=== PATIENT | male | born 1970 | race Caucasian/White ===

== ENCOUNTER 2016-05-02 19:11 | Emergency (ER) | payer BC ==
[~2016-05-02] VITALS: Ht 175.3 cm; Wt 84.0 kg
[2016-05-02 19:14] VITALS: TEMP 37; Ht 175.3 cm; Wt 84.0 kg
--- NOTE | 2016-05-02 19:46 | EMERGENCY ROOM VISIT NOTE ---
History First contact with patient: 19:26 Chief Complaint: CHEST PAIN Stated Complaint: CHEST PAIN,INTERMITENT AND LOWER RIGHT ARM PAIN History of Present Illness The patient is a 45 year old male who presents to the Emergency Room with complaints of chest and arm pain. He reports he noticed yesterday a dull ache in his mid-right forearm, which went away on its own. He reports today at 5: 45PM he was driving and noticed pain over his left anterior chest, which was described as a pinching pain, and then went away on its own after 5 minutes then returned. He then came for further evaluation as he was scared. He has never smoked, has never had a previous heart attack, and has no family history of early cardiac disease. Review of Systems See HPI for pertinent positives & negatives. A total of 10 systems reviewed and were otherwise negative. Past Medical/Surgical History Medical Problems: (1) No pertinent past medical history Shingles Family History Mother has diabetes, father has HTN Social History Smoking Status: Never Smoker Allergies Coded Allergies: No Known Allergies (Unverified , 05/02/16) Physical Exam Vital Signs Date Time Temp Pulse Resp B/P Pulse Ox O2 Delivery O2 Flow Rate FiO2 05/02/16 22:23 64 18 101/68 98 05/02/16 21:12 61 18 107/69 97 Room Air 05/02/16 20:04 98 Room Air 05/02/16 20:00 98 Room Air 05/02/16 19:14 37.0 80 18 126/83 99 Room Air Physical Exam GENERAL: Awake, alert, well-appearing, in no acute distress HENT: Normocephalic, atraumatic. Oropharynx unremarkable. EYES: Normal conjunctiva. Sclera non-icteric. NECK: Supple. No nuchal rigidity. FROM. No JVD. RESPIRATORY: Clear to auscultation. CARDIAC: Regular rate, normal rhythm. Extremities warm and well perfused. Pulses equal. ABDOMEN: Soft, non-distended. No tenderness to palpation. No rebound or guarding. No masses. MUSCULOSKELETAL: Chest examination reveals tenderness to palpation of left anterior chest, from clavicle to diaphragm. The back is symmetrical on inspection without obvious abnormality. There is no CVA tenderness to palpation. No joint edema. LOWER EXTREMITIES: Calves are equal size bilaterally and non-tender. No edema. No discoloration. NEURO: Normal sensorium. No sensory or motor deficits noted. SKIN: No rash or jaundice noted. Medical Decision & Procedures ER Provider Diagnostic Interpretation: CHEST 2 VIEWS ROUTINE CLINICAL HISTORY: chest pain dyspnea COMPARISON STUDY: No previous studies for comparison. FINDINGS: The bones soft tissues and hemidiaphragms are normal. The cardiomediastinal silhouette is normal. The lungs are clear. The pulmonary vasculature is normal. IMPRESSION: Negative chest. Laboratory Results 05/02/16 19:55 Red Blood Count 4.91, Mean Corpuscular Volume 84.5, Mean Corpuscular Hemoglobin 30.5, Mean Corpuscular Hemoglobin Concent 36.1, Mean Platelet Volume 9.5, Neutrophils (%) (Auto) 54.0, Lymphocytes (%) (Auto) 35.4, Monocytes (%) (Auto) 8.4, Eosinophils (%) (Auto) 1.7, Basophils (%) (Auto) 0.3, Neutrophils # (Auto) 3.15, Lymphocytes # (Auto) 2.07, Monocytes # (Auto) 0.49, Eosinophils # (Auto) 0.10, Basophils # (Auto) 0.02 05/02/16 19:55 Test 05/02/16 19:55 05/02/16 20:01 05/02/16 21:44 White Blood Count 5.84 K/uL (4.8-10.8) Red Blood Count 4.91 M/uL (4.7-6.1) Hemoglobin 15.0 g/dL (14.0-18.0) Hematocrit 41.5 % (42-52) Mean Corpuscular Volume 84.5 fL (80-100) Mean Corpuscular Hemoglobin 30.5 pg (25-34) Mean Corpuscular Hemoglobin Concent 36.1 g/dl (32-36) Platelet Count 256 K/uL (130-400) Mean Platelet Volume 9.5 fL (7.4-10.4) Neutrophils (%) (Auto) 54.0 % Lymphocytes (%) (Auto) 35.4 % Monocytes (%) (Auto) 8.4 % Eosinophils (%) (Auto) 1.7 % Basophils (%) (Auto) 0.3 % Neutrophils # (Auto) 3.15 K/uL (1.4-6.5) Lymphocytes # (Auto) 2.07 K/uL (1.2-3.4) Monocytes # (Auto) 0.49 K/uL (0.11-0.59) Eosinophils # (Auto) 0.10 K/uL (0-0.5) Basophils # (Auto) 0.02 K/uL (0-0.2) RDW Standard Deviation 37.7 fL (36.4-46.3) RDW Coefficient of Variation 12.3 % (11.5-14.5) Immature Granulocyte % (Auto) 0.2 % Immature Granulocyte # (Auto) 0.01 K/uL (0.00-0.02) Anion Gap 7.0 mmol/L (3-11) Est Creatinine Clear Calc Drug Dose 85.7 ml/min Estimated GFR () 94.1 Estimated GFR (Non- 81.2 BUN/Creatinine Ratio 16.3 (10-20) Calcium Level 8.8 mg/dl (8.5-10.1) Total Bilirubin 0.3 mg/dl (0.2-1) Aspartate Amino Transf (AST/SGOT) 21 U/L (15-37) Alanine Aminotransferase (ALT/SGPT) 21 U/L (12-78) Alkaline Phosphatase 43 U/L (45-117) Total Protein 7.2 gm/dl (6.4-8.2) Albumin 4.1 gm/dl (3.4-5.0) Globulin 3.1 gm/dl (2.5-4.0) Albumin/Globulin Ratio 1.3 (0.9-2) Bedside D-Dimer 238 ng/mlFEU (0-450) Bedside Troponin I 0.000 ng/ml (0-0.045) ECG Indication: chest pain Rhythm: normal sinus Comparison ECG Date: no prior available ED Course 2001: The patient was evaluated in room C1. A complete history and physical exam was performed. I ordered labwork and a CXR. I discussed the findings with my attending. 2155: I discussed the results, which were unremarkable and discharge instructions: the patient verbalized understanding and agreement. The patient is ready for discharge. Medical Decision Triage Nursing notes reviewed. 45 yo M with minimal cardiac risk factors presented with chest pain. Differential includes musculoskeletal, cardiac ischemia, shingles, aortic dissection, pulmonary embolism, pneumonia, pneumothorax, infections, gastrointestinal, as well as others were entertained. He did have reproducible tenderness on exam. He had a normal EKG and troponin negative x 2. His pain had resolved by time of re-assessment. His CXR was negative. We talked in depth about causes of chest pain, and warning signs for cardiac ischemia, and following up with a PCP to potentially get a stress test in the future. He was discharged home in good condition. Impression Primary Impression: Chest wall pain Additional Impression: Non-cardiac chest pain Departure Information Patient Instructions My [facility] Resident Tracking Resident Involvement: Resident Care Provided Care Provided: Adult ED Problem Qualifiers
[2016-05-02 20:03] LABS: BASO % 0.3 %; BASO ABS # 0.02 K/uL (0-0.2); COMPLETE YES; EOS % 1.7 %; HEMATOCRIT 41.5 % (42-52); IG% 0.2 %; LYMPH % 35.4 %; LYMPH ABS # 2.07 K/uL (1.2-3.4); MEAN CELL VOLUME 84.5 fL (80-100); MEAN CORPUSCULAR HEMOGLOBIN 30.5 pg (25-34); MEAN CORPUSCULAR HGB CONC 36.1 g/dl (32-36); MEAN PLATELET VOLUME 9.5 fL (7.4-10.4); MONO % 8.4 %; PLATELET COUNT 256 K/uL (130-400); RED BLOOD COUNT 4.91 M/uL (4.7-6.1); WHITE BLOOD COUNT 5.84 K/uL (4.8-10.8)
[2016-05-02 20:04] VITALS: O2SAT 98
[2016-05-02 20:21] LABS: BUN/CREATININE RATIO 16.3 (10-20); CALCIUM 8.8 mg/dl (8.5-10.1); CREATININE 1.1 mg/dl (0.60-1.40); POTASSIUM 3.8 mmol/L (3.5-5.1)
[2016-05-02 20:24] LABS: ALB/GLOB RATIO 1.3 (0.9-2)
--- NOTE | 2016-05-02 21:24 | DIAGNOSTIC IMAGING REPORT ---
CHEST 2 VIEWS ROUTINE CLINICAL HISTORY: chest pain dyspnea COMPARISON STUDY: No previous studies for comparison. FINDINGS: The bones soft tissues and hemidiaphragms are normal. The cardiomediastinal silhouette is normal. The lungs are clear. The pulmonary vasculature is normal. IMPRESSION: Negative chest. Electronically signed by: Heri Ochoa M.D. 05/02/2016 9:23 PM Dictated Date/Time: 05/02/2016 9:23 PM
[2016-05-02 22:23] VITALS: BP 101/68; PULSE 64; O2SAT 98
--- NOTE | 2016-05-02 23:36 | EMERGENCY ROOM VISIT NOTE ---
History Report prepared by Karolyn: Darya Hong Under the Supervision of: Dr. Chase Drew M.D. First contact with patient: 19:26 Chief Complaint: CHEST PAIN Stated Complaint: CHEST PAIN,INTERMITENT AND LOWER RIGHT ARM PAIN History of Present Illness The patient is a 45 year old male who presents to the Emergency Room with complaints of intermittent left-sided chest pain that started about two hours ago - around 1745. He describes the pain as a sharp "pinching" pain. He states that the pain would be sharp intermittently and he experienced about 12 episodes of sharp pain between 1730 and 1800. The pain started while the patient was driving. The pain has improved since earlier, but he is still experiencing some chest tenderness. The patient is also experiencing tingling in his bilateral hands. Pt denies fevers, chills, diaphoresis, neck pain, tearing pain radiating to the back, personal history or family history of cardiac problems, breathing difficulties, leg swelling, nausea, vomiting, abdominal pain, melena, hematochezia, urinary symptoms, numbness, weakness, lymphadenopathy, rash, or other complaints. Additionally, the patient experienced a dull achy pain in his right forearm yesterday, but it resolved on its own. The patient denies any personal or family cardiac history. The patient adds that he has been experiencing increased stress at work. He also states that he drove to [place] over the holidays, but otherwise denies any long trips. Source of History: patient Onset: two hours ago - around 1745 Position: chest (left) Quality: sharp ("pinching") Timing: intermittent Note: tingling in bilateral hands, dull achy pain in right forearm Review of Systems See HPI for pertinent positives and negatives. A total of ten systems were reviewed and were otherwise negative. Past Medical & Surgical Medical Problems: (1) No pertinent past medical history Family History No pertinent family history Social History Smoking Status: Never Smoker Marital Status: Occupation Status: employed Allergies Coded Allergies: No Known Allergies (Unverified , 05/02/16) Physical Exam Vital Signs Date Time Temp Pulse Resp B/P Pulse Ox O2 Delivery O2 Flow Rate FiO2 05/02/16 22:23 64 18 101/68 98 05/02/16 21:12 61 18 107/69 97 Room Air 05/02/16 20:04 98 Room Air 05/02/16 20:00 98 Room Air 05/02/16 19:14 37.0 80 18 126/83 99 Room Air Physical Exam GENERAL: Awake, alert, well-appearing, in no distress HENT: Normocephalic, atraumatic. Oropharynx unremarkable. EYES: Normal conjunctiva. Sclera non-icteric. NECK: Supple. No nuchal rigidity. FROM. No JVD. RESPIRATORY: Clear to auscultation. CARDIAC: Regular rate, normal rhythm. Extremities warm and well perfused. Pulses equal. ABDOMEN: Soft, non-distended. No tenderness to palpation. No rebound or guarding. No masses. RECTAL: Deferred. MUSCULOSKELETAL: Chest examination reveals left parasternal tenderness. The back is symmetrical on inspection without obvious abnormality. There is no CVA tenderness to palpation. No joint edema. LOWER EXTREMITIES: Calves are equal size bilaterally and non-tender. No edema. No discoloration. NEURO: Normal sensorium. No sensory or motor deficits noted. SKIN: No rash or jaundice noted. Medical Decision & Procedures ER Provider Diagnostic Interpretation: X-ray: Per my interpretation, radiologist review. CHEST 2 VIEWS ROUTINE IMPRESSION: Negative chest. Electronically signed by: Heri Ochoa M.D. 05/02/2016 9:23 PM Dictated Date/Time: 05/02/2016 9:23 PM Laboratory Results 05/02/16 19:55 Red Blood Count 4.91, Mean Corpuscular Volume 84.5, Mean Corpuscular Hemoglobin 30.5, Mean Corpuscular Hemoglobin Concent 36.1, Mean Platelet Volume 9.5, Neutrophils (%) (Auto) 54.0, Lymphocytes (%) (Auto) 35.4, Monocytes (%) (Auto) 8.4, Eosinophils (%) (Auto) 1.7, Basophils (%) (Auto) 0.3, Neutrophils # (Auto) 3.15, Lymphocytes # (Auto) 2.07, Monocytes # (Auto) 0.49, Eosinophils # (Auto) 0.10, Basophils # (Auto) 0.02 05/02/16 19:55 Test 05/02/16 19:55 05/02/16 20:01 05/02/16 21:44 White Blood Count 5.84 K/uL (4.8-10.8) Red Blood Count 4.91 M/uL (4.7-6.1) Hemoglobin 15.0 g/dL (14.0-18.0) Hematocrit 41.5 % (42-52) Mean Corpuscular Volume 84.5 fL (80-100) Mean Corpuscular Hemoglobin 30.5 pg (25-34) Mean Corpuscular Hemoglobin Concent 36.1 g/dl (32-36) Platelet Count 256 K/uL (130-400) Mean Platelet Volume 9.5 fL (7.4-10.4) Neutrophils (%) (Auto) 54.0 % Lymphocytes (%) (Auto) 35.4 % Monocytes (%) (Auto) 8.4 % Eosinophils (%) (Auto) 1.7 % Basophils (%) (Auto) 0.3 % Neutrophils # (Auto) 3.15 K/uL (1.4-6.5) Lymphocytes # (Auto) 2.07 K/uL (1.2-3.4) Monocytes # (Auto) 0.49 K/uL (0.11-0.59) Eosinophils # (Auto) 0.10 K/uL (0-0.5) Basophils # (Auto) 0.02 K/uL (0-0.2) RDW Standard Deviation 37.7 fL (36.4-46.3) RDW Coefficient of Variation 12.3 % (11.5-14.5) Immature Granulocyte % (Auto) 0.2 % Immature Granulocyte # (Auto) 0.01 K/uL (0.00-0.02) Anion Gap 7.0 mmol/L (3-11) Est Creatinine Clear Calc Drug Dose 85.7 ml/min Estimated GFR () 94.1 Estimated GFR (Non- 81.2 BUN/Creatinine Ratio 16.3 (10-20) Calcium Level 8.8 mg/dl (8.5-10.1) Total Bilirubin 0.3 mg/dl (0.2-1) Aspartate Amino Transf (AST/SGOT) 21 U/L (15-37) Alanine Aminotransferase (ALT/SGPT) 21 U/L (12-78) Alkaline Phosphatase 43 U/L (45-117) Total Protein 7.2 gm/dl (6.4-8.2) Albumin 4.1 gm/dl (3.4-5.0) Globulin 3.1 gm/dl (2.5-4.0) Albumin/Globulin Ratio 1.3 (0.9-2) Bedside D-Dimer 238 ng/mlFEU (0-450) Bedside Troponin I 0.000 ng/ml (0-0.045) Laboratory results reviewed by me ECG Indication: chest pain Rate (beats per minute): 62 Rhythm: normal sinus Findings: no acute ischemic change, no ectopy ED Course 2001: The patient was evaluated in room C1. A complete history and physical exam was performed. 215: Dr. Montero discussed results and discharge instructions: the patient verbalized understanding and agreement. The patient is ready for discharge. Medical Decision Triage Nursing notes reviewed. The patient's presentation and history were concerning for chest pain. Etiologies such as musculoskeletal, cardiac ischemia, aortic dissection, pulmonary embolism, pneumonia, pneumothorax, infections, gastrointestinal, as well as others were entertained. The patient was evaluated. Initially have some reproducible tenderness. His symptoms were pleuritic and sharp like. He had no exertional symptoms. He was negative. ECG was negative. Troponin was 02. The patient an unremarkable chest x-ray. The patient was seen and examined with Dr. Maribel Montero, resident physician. We discussed the case and treatments ordered, reviewed the results, and determine the disposition. Please refer to the resident's note for additional details. I have been directly involved with the management and disposition as well as independently evaluated the patient as documented in this note. His discomfort seems to be not consistent with a cardiac etiology. Conservative management was discussed for outpatient follow-up. By the evaluation outlined above other emergent etiologies such as those listed in the differential, as well as others, were deemed relatively unlikely. The patient was informed about the findings as listed above. All questions were answered and he was pleased with the treatment. Return instructions were outlined and the patient was discharged in stable condition. The patient was referred to [facility] for follow-up for a recheck of the current condition. The chart was completed utilizing [employer] voice recognition software. Grammatical errors, random word insertions, pronoun errors, and incomplete sentences are an occasional consequence of this system due to software limitations, ambient noise, and hardware issues. Any formal questions or concerns about the content, text, or information contained within the body of this dictation should be directly addressed to the physician for clarification. Impression Primary Impression: Left sided chest pain Scribe Attestation The scribe's documentation has been prepared under my direction and personally reviewed by me in its entirety. I confirm that the note above accurately reflects all work, treatment, procedures, and medical decision making performed by me. Departure Information Dispostion Home / Self-Care Forms HOME CARE DOCUMENTATION FORM, IMPORTANT VISIT INFORMATION Patient Instructions My [facility] Additional Instructions If you develop any further chest pain, please return to the ED. If you notice you have difficulty breathing or other issues, please return to the ED. Follow up with a Primary Care Physician to see if a stress test would be indicated for you. Call [phone] to set up an appt with Dr Montero at the [facility]
== END 2016-05-02 22:25 | disposition home or self-care (01) ==
LOC: C.EDB 19:13 → C.EDC 22:25
DX: R07.89 Other chest pain (principal)